=== PATIENT | male | born 1945 ===

== ENCOUNTER → 2020-09-05 08:26 | Outpatient (CLI) | payer MEDICARE, SELFPAY ==
[2020-09-05 20:38] LABS: Add Manual Diff / Slide Review NO; Basophils Absolute Auto 100 /uL (0-100); Eosinophils Absolute Auto 100 /uL (0-450); Eosinophils Percent Auto 1.7 % (2-4); Hematocrit 49.7 % (41-53); Hemoglobin 16.6 g/dL (13.5-17.5); Lymphocytes Absolute Auto 2300 /uL (1100-4500); Lymphocytes Percent Auto 29.6 % (25-40); Mean Corpuscular HGB Conc 33.3 % (30-36); Mean Corpuscular Volume 90.1 fL (80-100); Monocytes Absolute Auto 700 /uL (0-900); Monocytes Percent Auto 8.8 % (3-14); Neutrophils Absolute Auto 4700 /uL (1500-7000); Neutrophils Percent Auto 58.9 % (50-75); Platelet Count 327 X10^3/uL (150-400); Red Blood Cell Count 5.52 X10^6/uL (4.5-5.9); Red Cell Distribution Width 14.9 % (11.6-14.8); White Blood Cell Count 7.9 X10^3/uL (4.5-11.0)
[2020-09-05 22:12] LABS: Alanine Aminotransferase 20 IU/L (<50); Albumin 4.2 g/dL (3.5-5.0); Albumin Globulin Ratio 1.5 (1.0-2.8); Alkaline Phosphatase 71 U/L (38-126); Aspartate Aminotransferase 29 IU/L (17-59); BUN Creatinine Ratio 22.7 (6-22); Bilirubin Total 0.6 mg/dL (0.2-1.3); Blood Urea Nitrogen 20 mg/dL (9-20); Calcium 9.6 mg/dL (8.4-10.2); Carbon Dioxide 26 mmol/L (22-32); Chloride 102 mmol/L (98-107); Cholesterol 188 mg/dL (140-199); Estimated Glomerular Filt Rate > 60.0 mL/min (>60); Globulin 2.8 g/dL (1.7-4.1); Glucose 120 mg/dL (80-110); HDL Cholesterol 39 mg/dL (40-60); HEMOLYSIS 17 (0-50); LDL Cholesterol Calculated 117 mg/dL (<100); Potassium 4.6 mmol/L (3.4-5.1); Sodium 139 mmol/L (137-145); Triglycerides 162 mg/dL (35-150)
[2020-09-05 22:41] LABS: Prostate Specific Antigen 3.54 ng/mL (0.10-4.00)
[2020-09-11 13:51] LABS: Percent Free Testosterone 3.13 % (1.50-4.20); Testosterone Free 26.82 ng/dL (5.00-21.00); Testosterone Total 856.8 ng/dL (264.0-916.0)
== END ==
PROVIDERS: PCP Family Medicine; Visit Provider Family Medicine
DX: C44.91 Basal cell carcinoma of skin, unspecified (principal); E78.5 Hyperlipidemia, unspecified; N40.1 Benign prostatic hyperplasia with lower urinary tract symptoms; Z72.0 Tobacco use; F11.90 Opioid use, unspecified, uncomplicated; R79.89 Other specified abnormal findings of blood chemistry; G47.00 Insomnia, unspecified; R35.1 Nocturia
CPT/HCPCS: 80053; 80061; 84153; 84402; 84403; 85025